=== PATIENT | female | born 2000 | race Caucasian/White ===

== ENCOUNTER 2020-06-04 16:43 | Emergency (ER) | payer MEDICAID ==
[~2020-06-04] VITALS: Ht 154.9 cm; Wt 57.7 kg
[~2020-06-04 16:43] MED LIST: NAPR-56 PO
[2020-06-04 17:19] VITALS: BP 111/46
[2020-06-04] MEDS ORDERED: bacitracin 15gm ointment TP ONE (17:30)
== END 2020-06-04 18:29 | disposition home or self-care (01) ==
LOC: ER 16:43
DX: L02.413 Cutaneous abscess of right upper limb (principal); Z88.8 Allergy status to other drugs, medicaments and biological substances; Z88.0 Allergy status to penicillin; Z88.6 Allergy status to analgesic agent; Z79.899 Other long term (current) drug therapy
CPT/HCPCS: 99284

== ENCOUNTER 2023-05-08 18:30 | Emergency (ER) | payer MEDICAID ==
[~2023-05-08] VITALS: Ht 154.9 cm; Wt 97.8 kg
[2023-05-08 18:42] VITALS: BP 132/82; PULSE 84; RESP 16; TEMP 98; O2SAT 98
[2023-05-08] MEDS ORDERED: BENZ9GEL TOP (18:52)
[2023-05-08] MEDS ORDERED: CLIN-97 PO (18:52)
== END 2023-05-08 19:42 | disposition home or self-care (01) ==
LOC: ER 18:31
DX: K02.9 Dental caries, unspecified (principal); Z88.0 Allergy status to penicillin; Z88.8 Allergy status to other drugs, medicaments and biological substances; Z88.6 Allergy status to analgesic agent; Z79.1 Long term (current) use of non-steroidal anti-inflammatories (NSAID)
CPT/HCPCS: 99283